=== PATIENT | male | born 1990 | race Caucasian/White ===

== ENCOUNTER 2016-07-29 10:38 | Outpatient (CLI) | payer MEDICAID, OTHER ==
--- NOTE | 2016-07-29 21:43 | RAD ---
THORACIC SPINE TWO VIEWS 07/29/16 Comparison is made with a 11/27/14 study. No fracture, new or old, was seen. The disc spaces are norm al in height. The visible bony structures were unremarkable. Minimal curvature to the spine could be positional. IMPRESSION: No significant findings. POS: HOME
--- NOTE | 2016-07-29 22:02 | RAD ---
LUMBAR SPINE THREE VIEWS 07/29/16 Comparison is made with the 11/27/14 study. The fracture through the anterior superior portion of L2 has healed nicely. There is a slight anteri or compression of the superior end plate, but not by much. There is no dislocation or disc space [place] rowing. No new bony lesions were seen. The SI joints are symmetrical. IMPRESSION: Well healed fracture of the superior portion of L2. No acute bony findings. POS: HOME
== END 2016-07-29 10:39 | disposition home or self-care (01) ==
LOC: BURRAD 10:38
PROVIDERS: ATTEND Family Medicine
DX: M54.5 Low back pain (principal); G89.29 Other chronic pain; M54.6 Pain in thoracic spine
CPT/HCPCS: 72070; 72100

== ENCOUNTER 2016-10-29 09:14 | Emergency (ER) | payer SELFPAY ==
[2016-10-29] MEDS ORDERED: Prochlorperazine 10 MG/2 ML VIAL ONE (09:44)
[2016-10-29] MEDS ORDERED: diphenhydrAMINE HCl 50 MG/ML 1 ML VIAL ONE (09:44)
[2016-10-29] MEDS ORDERED: Dexamethasone 4 mg/ml Vial ONE ×2 (10:39→11:24)
[2016-10-29] MEDS ORDERED: AMOXicillin 250 MG CAP ONE (10:39)
--- NOTE | 2016-10-29 16:12 | CT ---
CT OF THE BRAIN WITHOUT CONTRAST 10/29/16 Comparison is made with the 02/01/15 study done at [facility]. The ventricles are normal in size with no shift. No intracranial bleeding, extra-axial hematoma or s ubarachnoid blood was found. There is no sign of mass, edema, or stroke. The visible paranasal sinus es are clear. The mastoid air cells are clear. IMPRESSION: Stable exam showing no significant finding. POS: HOME
== END 2016-10-29 10:52 | disposition home or self-care (01) ==
LOC: BURERS 09:14
DX: J01.90 Acute sinusitis, unspecified (principal); F31.9 Bipolar disorder, unspecified; F17.210 Nicotine dependence, cigarettes, uncomplicated
CPT/HCPCS: 70450; 94760; 96361; 96374; 96375; J0780; J1100; J1200

== ENCOUNTER 2017-05-19 13:42 | Emergency (ER) | payer SELFPAY ==
[2017-05-19] MEDS ORDERED: Ketorolac Tromethamine 60 MG/2 ML VIAL ONE (14:42)
== END 2017-05-19 15:00 | disposition home or self-care (01) ==
LOC: BURERS 13:42
DX: G43.909 Migraine, unspecified, not intractable, without status migrainosus (principal)
CPT/HCPCS: 96372; J1885

== ENCOUNTER 2018-06-15 13:40 | Outpatient (CLI) | payer OTHER ==
--- NOTE | 2018-06-15 17:32 | RAD ---
LUMBAR SPINE THREE VIEWS: 06/15/18 Comparison is made with the 07/29/16 study. Mild anterior compression of the L2 vertebral body is again noted. It has healed. The degree of compr ession has not really changed over time. There is a slight amount of downsloping of the superior end plate of L1, but very close to the prior study. There are no new findings of concern. Disc spaces are all normal in height. The SI joints appear normal. IMPRESSION: No acute bony findings. Mild L2 compression stable. POS: HOME
== END 2018-06-15 13:41 | disposition home or self-care (01) ==
LOC: BURRAD 13:40
PROVIDERS: ATTEND Family Medicine
DX: M54.42 Lumbago with sciatica, left side (principal); G89.29 Other chronic pain
CPT/HCPCS: 72100

== ENCOUNTER 2022-09-01 10:37 | Outpatient (CLI) | payer OTHER | END 2022-09-01 10:38 | disposition home or self-care (01) | LOC: BURRAD 10:37 | PROVIDERS: ATTEND Family Medicine | DX: J40 Bronchitis, not specified as acute or chronic (principal) | CPT/HCPCS: 71046 ==

== ENCOUNTER 2023-08-19 07:38 | Emergency (ER) | payer OTHER | END 2023-08-19 08:07 | disposition home or self-care (01) | LOC: BURERS 07:38 | DX: Z46.89 Encounter for fitting and adjustment of other specified devices (principal); Z87.891 Personal history of nicotine dependence | CPT/HCPCS: 99283 ==